=== PATIENT | male | born 2000 | race Caucasian/White ===

== ENCOUNTER 2020-07-05 14:50 | Emergency (ER) | payer OTHER ==
[~2020-07-05] VITALS: Ht 170.2 cm; Wt 81.8 kg
[2020-07-05 16:21] VITALS: BP 114/62
== END 2020-07-05 16:24 | disposition home or self-care (01) ==
LOC: EMS 14:50
DX: F20.9 Schizophrenia, unspecified (principal)
CPT/HCPCS: 99284; Z7502